=== PATIENT | female | born 1935 | race Caucasian/White ===

== ENCOUNTER → 2016-12-10 | Outpatient (CLI) | payer MEDICARE, BC | LOC: MC.RAD 09:13 | DX: Z12.31 Encounter for screening mammogram for malignant neoplasm of breast (principal) ==

== ENCOUNTER → 2017-09-23 | Outpatient (CLI) | payer MEDICARE, BC | LOC: COL.VAS 07:49 | DX: I08.1 Rheumatic disorders of both mitral and tricuspid valves (principal) ==

== ENCOUNTER → 2017-12-17 | Outpatient (CLI) | payer MEDICARE, BC | LOC: MC.RAD 14:57 | DX: Z12.31 Encounter for screening mammogram for malignant neoplasm of breast (principal) ==

== ENCOUNTER → 2018-01-30 | Outpatient (CLI) | payer MEDICARE, BC | LOC: COL.RAD 09:32 | DX: N30.01 Acute cystitis with hematuria (principal) ==

== ENCOUNTER 2018-06-15 19:26 | Emergency (ER) | payer MEDICARE, BC ==
[~2018-06-15] VITALS: Ht 152.4 cm; Wt 45.5 kg
[2018-06-15 19:36] VITALS: TEMP 98.2
[2018-06-15] MEDS ORDERED: ELIQUIS 5MG PO (19:52)
[2018-06-15] MEDS ORDERED: ACTIGALL 300MG300 MG PO (19:53)
[2018-06-15 20:16] LABS: BASO % 0.1 % (0.0-2.0); GRAN # 12.2 (1.4-6.5); GRAN % 88.9 % (42.2-75.2); HEMATOCRIT 40.1 % (37.0-47.0); HEMOGLOBIN 13.6 g/dl (12.5-16.0); LYMPH # 0.7 (1.2-3.4); MEAN CELL VOLUME 94 fl (80.0-100.0); MEAN CORPUSCULAR HEMOGLOBIN 32 pg (27.0-31.0); MEAN CORPUSCULAR HGB CONC 34 g/dl (33.0-37.0); MEAN PLATELET VOLUME 9.7 fl (7.4-10.4); MONO # 0.8 (0.1-0.6); MONO % 5.6 % (1.7-9.3); PLATELET COUNT 175 K/mm3 (130-400); RED BLOOD COUNT 4.27 M/mm3 (4.10-5.30); REDCELL DISTRIBUTION WIDTH-CV 12.9 % (11.5-14.5)
[2018-06-15 20:21] LABS: INR 1.8 (0.8-3.0); PARTIAL THROMBOPLASTIN TIME 40.1 SECONDS (26.0-37.0)
[2018-06-15 20:30] LABS: ALBUMIN 3.9 gm/dL (3.5-5.0); BILIRUBIN,TOTAL 2.8 mg/dL (0.0-1.0); C-REACTIVE PROTEIN 3.8 mg/dL (0.0-0.9); CALCIUM 8.9 mg/dL (8.4-10.2); CREATININE, serum 0.63 mg/dL (0.52-1.25); TOTAL PROTEIN 7.1 gm/dL (6.4-8.2)
[2018-06-15] MEDS ORDERED: TOPROL XL200 MG PO (20:33)
[2018-06-15] MEDS ORDERED: LEVAQUIN 5500 MG/TA1 PO (22:18)
[2018-06-15 22:42] VITALS: BP 104/85; PULSE 105
== END 2018-06-15 22:46 | disposition home or self-care (01) ==
LOC: COL.ER 19:26
PROVIDERS: Emergency Medicine
DX: J18.9 Pneumonia, unspecified organism (principal); R04.2 Hemoptysis; Z79.01 Long term (current) use of anticoagulants
CPT/HCPCS: Q9967

== ENCOUNTER → 2018-12-16 | Outpatient (CLI) | payer MEDICARE, BC ==
[~2018-12-16] MED LIST: ACTIGALL 300MG300 MG PO; ELIQUIS 5MG PO; LEVAQUIN 5500 MG/TA1 PO; TOPROL XL200 MG PO
== END ==
LOC: COL.RAD 13:35
DX: N32.89 Other specified disorders of bladder (principal); R31.0 Gross hematuria; Z90.710 Acquired absence of both cervix and uterus
CPT/HCPCS: Q9967

== ENCOUNTER 2021-10-06 13:58 | Emergency (ER) | payer MEDICARE, BC ==
[~2021-10-06] VITALS: Ht 152.4 cm; Wt 43.6 kg
[2021-10-06 14:38] VITALS: TEMP 98.8
[2021-10-06 16:15] VITALS: BP 171/68; PULSE 73
== END 2021-10-06 16:15 | disposition home or self-care (01) ==
LOC: COL.ER 13:58
DX: R04.0 Epistaxis (principal)

== ENCOUNTER → 2021-11-23 | Outpatient (CLI) | payer MEDICARE, BC | LOC: COL.RAD 12:28 | DX: N30.21 Other chronic cystitis with hematuria (principal) ==

== ENCOUNTER 2022-07-10 22:26 | Emergency (ER) | payer MEDICARE, BC ==
[~2022-07-10] VITALS: Ht 152.4 cm; Wt 45.0 kg
[2022-07-11 01:27] LABS: CREATININE, serum 0.88 mg/dL (0.57-1.11)
[2022-07-11 02:54] VITALS: BP 160/81; PULSE 109; TEMP 98.6
[2022-07-11] MEDS ORDERED: TOPROL XL 50MG50 MG PO (19:39)
[2022-07-11] MEDS ORDERED: ELIQUIS 2.5 PO (19:39)
== END 2022-07-11 02:55 | disposition home or self-care (01) ==
LOC: COL.ER 22:26
PROVIDERS: Emergency Medicine Emergency Medical Services
DX: S72.421A Displaced fracture of lateral condyle of right femur, initial encounter for closed fracture (principal); Z28.310 Unvaccinated for COVID-19; W18.2XXA Fall in (into) shower or empty bathtub, initial encounter
CPT/HCPCS: Q9967